=== PATIENT | male | born 1965 | race Caucasian/White ===

== ENCOUNTER → 2017-10-25 | Outpatient (REF) | payer BC ==
[~2017-10-25] MED LIST: ALL100 PO; ALLO100T70 PO; COL0.6 PO; IBUP-1618 PO; INDO-1 PO; LOR5 PO; LOR5/325 PO; ONDA4TAB PO; OXYC-865 PO; PRE20 PO; PRED20TA6 PO; TRAM-627 PO
[2017-10-25 20:14] LABS: PLATELET COUNT, AUTOMATED 153 K/uL (150-450)
== END ==
PROVIDERS: ATTEND Nurse Practitioner Family
DX: M25.462 Effusion, left knee (principal)
CPT/HCPCS: 82040; 82247; 82310; 82374; 82435; 82565; 82947; 84075; 84132; 84155; 84295; 84450; 84460; 84520; 84550; 85025; 85651